=== PATIENT | male | born 1970 | race Caucasian/White ===

== ENCOUNTER 2019-05-23 12:26 | Observation (INO) | payer MEDICARE, OTHER ==
[2019-05-23] MEDS ORDERED: SODIUM CHLORIDE 0.9% 500 ML 500 ML IV STA (13:14)
[2019-05-23] MEDS ORDERED: METOCLOPRAMIDE 5 MG/ML 2 ML VIAL IVP STA (13:14)
[2019-05-23] MEDS ORDERED: HYDROmorphone 1 MG/ML 1 ML SYRINGE IVP STA (13:16)
--- NOTE | 2019-05-23 13:18 | ED ---
General Adult HPI - General Chief complaint: Headache Stated complaint: Headache Time Seen by Provider: 05/23/19 13:01 Source: patient, family, RN notes reviewed Mode of arrival: ambulatory Limitations: no limitations - History of Present Illness Initial comments: Patient is a pleasant 49-year-old male presenting to the emergency Department with headache. Patient states headaches have been present for the past several months. Headaches have been waxing and waning and do not normally completely go away. Headaches then gradually get worse. Headaches are very severe at times. Headache is more in the back of the head however does go to both sides. Patient does have associated nausea and photophobia. Patient states he was at [facility] approximately one month ago and was told there was question of some possible leaking. Patient got frustrated and left AGAINST MEDICAL ADVICE. Patient has been having continued symptoms since that time. No confusion or isolated area of weakness. No fevers. Patient does feel lightheaded at times. - Related Data Home Medications Medication Instructions Recorded Confirmed Ibuprofen [Motrin] 800 mg PO TID PRN 05/23/19 05/23/19 Allergies Allergy/AdvReac Type Severity Reaction Status Date / Time vancomycin Allergy Unknown Verified 05/23/19 13:31 Review of Systems ROS Statement: Those systems with pertinent positive or pertinent negative responses have been documented in the HPI. ROS Other: All systems not noted in ROS Statement are negative. Constitutional: Denies: fever Eyes: Denies: eye pain ENT: Denies: ear pain Respiratory: Denies: cough Cardiovascular: Denies: chest pain Endocrine: Denies: fatigue Gastrointestinal: Reports: nausea. Denies: abdominal pain Genitourinary: Denies: dysuria Musculoskeletal: Denies: back pain Skin: Denies: rash Neurological: Reports: headache. Denies: weakness, confusion Past Medical History Past Medical History: COPD, CVA/TIA, Hypertension Additional Past Medical History / Comment(s): spinal fluid leakage, blood clot to left arm History of Any Multi-Drug Resistant Organisms: None Reported Past Surgical History: Appendectomy Additional Past Surgical History / Comment(s): nerve repair Past Psychological History: No Psychological Hx Reported Smoking Status: Current every day smoker Past Alcohol Use History: None Reported Past Drug Use History: None Reported General Exam Limitations: no limitations General appearance: alert, in no apparent distress Head exam: Present: atraumatic, normocephalic Eye exam: Present: normal appearance, PERRL, EOMI. Absent: nystagmus ENT exam: Present: normal oropharynx Neck exam: Present: normal inspection Respiratory exam: Present: normal lung sounds bilaterally Cardiovascular Exam: Present: regular rate, normal rhythm GI/Abdominal exam: Present: soft. Absent: tenderness Extremities exam: Present: normal inspection Neurological exam: Present: alert, oriented X3, CN II-XII intact. Absent: motor sensory deficit Expanded Neurological exam: Present: protecting the airway Speech: Present: fluid speech Cranial nerves: EOM's Intact: Normal Motor strength exam: RUE: 5, LUE: 5, RLE: 5, LLE: 5 Eye Response: (4) open spontaneously Motor Response: (6) obeys commands Verbal Response: (5) oriented Psychiatric exam: Present: normal affect, normal mood Skin exam: Present: normal color Course Vital Signs 05/23/19 12:27 Temperature 98.1 F Pulse Rate 84 Respiratory 16 Rate Blood Pressure 177/99 O2 Sat by Pulse 98 Oximetry Medical Decision Making - Medical Decision Making Patient having continued symptoms. Case discussed with Dr. Murphy with neurology who does recommend observation and order for CTV tomorrow. Also request magnesium Toradol and Decadron. [facility] physician group has been paged for admission. Patient updated. Case was discussed with Dr. Parker, who will admit covering for hospital call. - Lab Data Result diagrams: 05/23/19 12:51 05/23/19 12:51 Lab Results 05/23/19 05/23/19 05/23/19 Range/Units 12:51 12:51 12:51 WBC 8.8 (3.8-10.6) k/uL RBC 4.34 (4.30-5.90) m/uL Hgb 14.3 (13.0-17.5) gm/dL Hct 41.2 (39.0-53.0) % MCV 95.0 (80.0-100.0) fL MCH 32.9 (25.0-35.0) pg MCHC 34.6 (31.0-37.0) g/dL RDW 13.3 (11.5-15.5) % Plt Count 174 (150-450) k/uL Neutrophils % 69 % Lymphocytes % 20 % Monocytes % 7 % Eosinophils % 1 % Basophils % 1 % Neutrophils # 6.0 (1.3-7.7) k/uL Lymphocytes # 1.8 (1.0-4.8) k/uL Monocytes # 0.6 (0-1.0) k/uL Eosinophils # 0.1 (0-0.7) k/uL Basophils # 0.1 (0-0.2) k/uL PT 9.8 (9.0-12.0) sec INR 0.9 (<1.2) APTT 25.0 (22.0-30.0) sec Sodium 138 (137-145) mmol/L Potassium 4.6 (3.5-5.1) mmol/L Chloride 106 (98-107) mmol/L Carbon Dioxide 23 (22-30) mmol/L Anion Gap 9 mmol/L BUN 14 (9-20) mg/dL Creatinine 0.97 (0.66-1.25) mg/dL Est GFR (CKD-EPI)AfAm >90 (>60 ml/min/1.73 sqM) Est GFR (CKD-EPI)NonAf >90 (>60 ml/min/1.73 sqM) Glucose 88 (74-99) mg/dL Calcium 9.2 (8.4-10.2) mg/dL Total Bilirubin 0.5 (0.2-1.3) mg/dL AST 30 (17-59) U/L ALT 19 L (21-72) U/L Alkaline Phosphatase 73 (38-126) U/L Total Protein 7.2 (6.3-8.2) g/dL Albumin 4.5 (3.5-5.0) g/dL - Radiology Data Radiology results: report reviewed (ET scan of the brain shows no acute process. 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
[2019-05-23 13:30] LABS: INR 0.9 (<1.2); Prothrombin Time 9.8 sec (9.0-12.0)
[2019-05-23 13:33] LABS: Basophils # (A) 0.1 k/uL (0-0.2); Basophils % (A) 1 %; Eosinophils # (A) 0.1 k/uL (0-0.7); Eosinophils % (A) 1 %; HCT 41.2 % (39.0-53.0); HGB 14.3 gm/dL (13.0-17.5); Lymphocytes # (A) 1.8 k/uL (1.0-4.8); Lymphocytes % (A) 20 %; MCH 32.9 pg (25.0-35.0); MCHC 34.6 g/dL (31.0-37.0); Mean Platelet Volume 7.5; Monocytes # (A) 0.6 k/uL (0-1.0); Monocytes % (A) 7 %; Neutrophils % (A) 69 %; Platelet Count 174 k/uL (150-450); RBC 4.34 m/uL (4.30-5.90); RDW 13.3 % (11.5-15.5); WBC 8.8 k/uL (3.8-10.6)
[2019-05-23 13:36] LABS: ALT 19 U/L (21-72); AST 30 U/L (17-59); African American GFR (CKD) >90 (>60 ml/min/1.73 sqM); Albumin 4.5 g/dL (3.5-5.0); Alkaline Phosphatase 73 U/L (38-126); Anion Gap 9 mmol/L; Blood Urea Nitrogen 14 mg/dL (9-20); Calcium 9.2 mg/dL (8.4-10.2); Carbon Dioxide 23 mmol/L (22-30); Chloride 106 mmol/L (98-107); Glucose 88 mg/dL (74-99); Potassium 4.6 mmol/L (3.5-5.1); Sodium 138 mmol/L (137-145); Total Bilirubin 0.5 mg/dL (0.2-1.3); Total Protein 7.2 g/dL (6.3-8.2)
--- NOTE | 2019-05-23 14:44 | CT ---
EXAMINATION TYPE: CT brain wo con DATE OF EXAM: 05/23/2019 COMPARISON: None HISTORY: 49-year-old male headache, Blurred vision, unsteady gait, head pressure TECHNIQUE: Examination was done in axial plane without intravenous contrast. Coronal and sagittal r econstructions performed. CT DLP: 1698.1 mGycm Automated exposure control for dose reduction was used. FINDINGS: There is no evidence of acute intracranial hemorrhage, acute ischemic changes, mass, mass-effect, or extra-axial fluid collection. There is no effacement of cerebral sulci or basal subarachnoid cister ns. There is no hydrocephalus. There is no midline shift. Ortega-white matter distinction is preserv ed. Slight leftward nasal septal deviation. Paranasal sinuses and mastoid air cells well pneumatized. Orb its and globes are intact. IMPRESSION: No acute intracranial abnormality seen.
--- NOTE | 2019-05-23 14:51 | CT ---
EXAMINATION TYPE: CT angio head neck DATE OF EXAM: 05/23/2019 COMPARISON: CT brain same day HISTORY: 49-year-old male with headache, Blurred vision, unsteady gait and headache TECHNIQUE: Contiguous axial scanning of the head and neck performed with IV Contrast, patient injecte d with 65 ml mL of Isovue 370. Coronal/sagittal MIP reconstructions performed. 3-D reconstructions ge nerated on a dedicated independent workstation. CT DLP: 1698.1 mGycm Automated exposure control for dose reduction was used. FINDINGS: Neck: Numerous punctate calcifications within the visualized bilateral lungs can be correlated clinically. This can be seen with metastatic calcifications in the setting of chronic kidney disease or prior hea led varicella or fungal infections. Conventional arch vessel branching anatomy. Brachiocephalic, right common carotid, and right internal carotid arteries are widely patent. Left common and internal carotid arteries are patent. Mild atelectatic calcifications at the origin of the left vertebral artery. Left vertebral artery is slightly more dominant. Both vessels are otherwise patent throughout their course. Head: Suspect a hypoplastic V4 segment right vertebral artery after the posterior inferior cerebellar arter y takeoff. The vertebral and basilar arteries are otherwise patent. Internal carotid arteries and remainder of the anterior circulation also remain patent without signif icant stenosis or occlusion. No aneurysmal change is identified. IMPRESSION: 1. NECK: NO HEMODYNAMICALLY SIGNIFICANT CAROTID OR VERTEBRAL ARTERY STENOSIS OR THE NECK. NUMEROUS PU NCTATE CALCIFICATIONS WITHIN THE VISUALIZED UPPER LUNGS COULD REFLECT SEQUELA OF CHRONIC KIDNEY DISEA SE OR PREVIOUS HEALED VARICELLA OR FUNGAL INFECTION. 2. 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 OTHER PEOPLES, NO SIGNIFICANT STENOSIS, LARGE VESSEL INTRACRANIAL ARTERIAL OCCLUSION, OR ANEURYSMAL CHANGE SEE N.
[2019-05-23] MEDS ORDERED: MAGNESIUM SULFATE-D5W PMX 1 GM in DEXTROSE/WATER 1 100ML.BAG IVPB ONE (15:22)
[2019-05-23] MEDS ORDERED: KETOROLAC 30 MG/ML 1 ML VIAL IVP STA (15:22)
[2019-05-23] MEDS ORDERED: DEXAMETHASONE SOD PHOSPHATE 10 MG/ML 1 ML VIAL IV STA (15:22)
[2019-05-23] MEDS ORDERED: NALOXONE 0.4 MG/ML 1 ML VIAL IV PRN (15:23)
[2019-05-23] MEDS ORDERED: RX INFO: IV CONTRAST WAS GIVEN 1 EACH MISC MISCELLANE PRN (15:24)
[2019-05-23] MEDS: MORPHINE SULFATE 4 MG/ML SYRINGE IV PRN ×2 (16:36→21:45)
[2019-05-23] MEDS: SODIUM CHLORIDE 0.9% 1,000 ML IV SCH (16:42)
[2019-05-23 17:56] VITALS: BMI 25.2
[2019-05-23] MEDS ORDERED: ACETAMINOPHEN TAB 325 MG TAB PO PRN (18:10)
--- NOTE | 2019-05-23 18:10 | P.HPIM ---
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 Patient reports headache that has been ongoing for the past 6 months. Patient states the headache is occipital and radiates to the frontal area left greater than right. Headache lasts for a couple of hours at a time. Headache occurs about 3 times a day. Headache is throbbing in nature and described as pressure-like. Pain is 7-10 out of 10 in severity. Headache is associated with blurry vision and unstable gait. Patient denies any increased stressors. He does drink 2 cups of coffee daily. Patient reports smoking 2-1/2-3 packs of cigarettes daily over the past 12 years. Patient has been evaluated in the past and diagnosed with "spinal fluid leakage"from [facility] but is unable to comment further. He denies any lower extremity edema, nausea or vomiting, fever or chills, cough, chest pain, shortness of breath, palpitations, changes in urination or bowel habits. No changes in appetite or weight. Patient reports chronic weakness in his right upper extremity along with numbness in all 4 of his extremities associated with his spinal injury. CT brain was performed which showed no acute intracranial abnormality. 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 Patient is admitted for intractable headache with neurology on consult. Review of Systems Pertinent positives and negatives as discussed in HPI, a complete review of systems was performed and all other systems are negative. Past Medical History Past Medical History: COPD, CVA/TIA, Hypertension Additional Past Medical History / Comment(s): spinal fluid leakage, blood clot to left arm from mercury poisoning, mercury poisoning : client stated he was exposed about 10 years ago at his fathers house and is now on lifelong treatment but has had meds for it in a year due to [place] to different [place]. History of Any Multi-Drug Resistant Organisms: None Reported Past Surgical History: Appendectomy, Back Surgery Additional Past Surgical History / Comment(s): nerve repair, client broke his lower back playing hockey 8 years ago. fractured right hand. Past Psychological History: No Psychological Hx Reported Smoking Status: Never smoker Past Alcohol Use History: None Reported Past Drug Use History: None Reported - Past Family History Brother(s) Family Medical History: Hypertension, Myocardial Infarction (ME) Additional Family Medical History / Comment(s): at age 49 from an ME Mother Family Medical History: Cancer Additional Family Medical History / Comment(s): Father Family Medical History: Cancer Additional Family Medical History / Comment(s): Medications and Allergies Home Medications Medication Instructions Recorded Confirmed Type Ibuprofen [Motrin] 800 mg PO TID PRN 05/23/19 05/23/19 History Allergies Allergy/AdvReac Type Severity Reaction Status Date / Time vancomycin Allergy Unknown Verified 05/23/19 13:31 Physical Exam Vitals: Vital Signs Temp Pulse Resp BP Pulse Ox 05/23/19 16:57 75 18 147/90 98 05/23/19 12:27 98.1 F 84 16 177/99 98 Intake and Output 05/23/19 05/23/19 05/23/19 06:59 14:59 22:59 Other: Weight 75.296 kg General: [non toxic], [no distress], [appears at stated age] Derm: [warm], [dry] Head: [atraumatic], [normocephalic], [symmetric], [restricted range of motion of the neck due to pain in the right upper extremity] Eyes: [EOMI], [no lid lag], [anicteric sclera] Mouth: [no lip lesion], [mucus membranes moist] Cardiovascular: [S1S2 reg], [no murmur], [positive DP pulse bilateral], Lungs: [CTA bilateral], [no rhonchi, no rales] , [no accessory muscle use] Abdominal: [soft], [ nontender to palpation], [no guarding], [no appreciable organomegaly] Ext: [no gross muscle atrophy], [no edema], [no contractures] Neuro: [ CN II-XI grossly intact], [4-5 strength in the right upper extremity, 5 out of 5 strength throughout, decreased sensation in all 4 extremities to touch] Psych: [Alert], [oriented], [appropriate affect] Results CBC & Chem 7: 05/23/19 12:51 05/23/19 12:51 Labs: Abnormal Lab Results - Last 24 Hours (Table) 05/23/19 Range/Units 12:51 ALT 19 L (21-72) U/L Thrombosis Risk Factor Assmnt - Choose All That Apply Each Factor Represents 1 point: Age 41-60 years Thrombosis Risk Factor Assessment Total Risk Factor Score: 1 Thrombosis Risk Factor Assessment Level: Low Risk Assessment and Plan Assessment: Assessment and plan Intractable headache with blurry vision, possibly related to chronic mercury poisoning or neck spasms from spinal injury in the past Smoker CT brain negative. 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 Neurology consulted from ED, recommends venogram. Plans: Pain management with morphine as needed for severe pain. Valium as needed for muscle spasms. We will restart the patient on his gabapentin as previously prescribed. Advanced neurochecks. Follow neurology recommendations. Plans: Add nicotine patch. DVT prophylaxis: [SCD boots] Discussed with: [Patient] Anticipated discharge: [1-2 days] Anticipated discharge place: [Home] A total of [35] minutes was spent on the care of this complex patient more than 50% of the time was spent in counseling and care coordination. Patient remains full code at this time.
[2019-05-23] MEDS: GABAPENTIN 300 MG CAP PO SCH ×2 (18:21→21:46)
[2019-05-23] MEDS: NICOTINE 21MG/24HR PATCH TRANSDERM SCH (18:21)
[2019-05-23] MEDS: CARVEDILOL 3.125 MG TAB PO SCH (18:56)
[2019-05-23] MEDS: amLODIPine 10 MG TAB PO SCH (18:56)
[2019-05-23] MEDS: ONDANSETRON 4 MG/2 ML VIAL IVP PRN (18:56)
[2019-05-23] MEDS: DIAZEPAM 5 MG TAB PO PRN (21:54)
[2019-05-24] MEDS: ONDANSETRON 4 MG/2 ML VIAL IVP PRN ×2 (04:49→20:14)
[2019-05-24] MEDS: MORPHINE SULFATE 4 MG/ML SYRINGE IV PRN ×3 (04:50→20:04)
[2019-05-24] MEDS: CARVEDILOL 3.125 MG TAB PO SCH ×2 (04:56→17:19)
[2019-05-24] MEDS: SODIUM CHLORIDE 0.9% 1,000 ML IV SCH ×2 (04:57→17:20)
[2019-05-24] MEDS: amLODIPine 10 MG TAB PO SCH (07:29)
[2019-05-24] MEDS: GABAPENTIN 300 MG CAP PO SCH ×3 (07:29→22:31)
[2019-05-24] MEDS: NICOTINE 21MG/24HR PATCH TRANSDERM SCH (07:29)
[2019-05-24 09:24] LABS: African American GFR (CKD) >90 (>60 ml/min/1.73 sqM); Anion Gap 8 mmol/L; Blood Urea Nitrogen 17 mg/dL (9-20); Calcium 9.1 mg/dL (8.4-10.2); Carbon Dioxide 24 mmol/L (22-30); Chloride 104 mmol/L (98-107); Glucose 98 mg/dL (74-99); Potassium 4.4 mmol/L (3.5-5.1); Sodium 136 mmol/L (137-145)
--- NOTE | 2019-05-24 12:21 | P.CNNES ---
History of Present Illness Consult date: 05/24/19 Reason for Consult: Severe headache Chief complaint: Severe headache x several months History of Present Illness: HISTORY OF PRESENT ILLNESS: Thank you for allowing me to evaluate Mr. Drew Jenkins. Mr. Jenkins is a 49-year-old man with past medical history of COPD, stroke/TIA, hypertension, who presented to [facility] with persistent severe headache for months, which evolved to also cause R-sided numbness and cramping. Patient states 8-9 months ago, he started having more occipital and L-sided headache associated with photophobia, phonophia and nausea that would last for sometimes 30 minutes, sometimes a few hours and would be relieved by ibuprofen. It started getting worse to the point where he has a headache persistently, anywhere from 3 to 7 out of 10 pain. Patient had been to other emergency rooms for these headaches, and at one point, was told that he may have some spinal flu id leakage, which could be causing his headaches. Currently, patient having 7 out of 10 pain. Patient states that he "broke his back" almost 10 years ago, which caused some back pain. Patient had received epidural injections and also got his CSF checked because some doctors were concerned about MS. Patient was never given a diagnosis or any medical treatment. Patient says that he may have gotten an MRI at [place], but her ED physician, patient had a CT Head done. Patient also states that he got his eyes checked at [facility] in [place] due to his progressive vision changes. States he had central vision loss with his R eye but perfect peripheral vision and some blurry vision in his L eye as if he was trying see under water. Patient states his pupils were dilated, and the eye doctor at the time said it should improve with time. No imaging was offered at the time. PAST MEDICAL HISTORY: COPD, stroke/TIA, hypertension PAST SURGICAL HISTORY: Appendectomy HOME MEDICATIONS: Ibuprofen when necessary ALLERGIES: Vancomycin SOCIAL HISTORY: Current every day smoker FAMILY HISTORY: No history of migraines. REVIEW OF SYSTEMS: The 14 systems are reviewed and no additional points are identified compared to the review of systems documented history and physical PHYSICAL EXAMINATION: VITAL SIGNS: T 97.3 HR 91 RR 18 BP 163/101 O2 sat 98% on RA GEN.: NAD, pleasant and cooperative HEENT: NCAT, sclera without icterus NECK: Supple SKIN AND EXTREMITIES: Warm to touch, no edema NEURO: MENTAL STATUS: Patient alert and oriented to self, place, time. Able to name the current president. Speech fluent, able to name and repeat, following all commands readily. No right and left disorientation, extinction to double simultaneous stimulation, finger agnosia, neglect.] CRANIAL NERVES II THROUGH XII: II: Pupils are equal and reactive to light symmetrically. No afferent pupillary defect. Visual boggs are intact. III, IV, : No ptosis. Extraocular movements full. No nystagmus. V: Facial sensation intact from V1-3. VII. No clear facial asymmetry. VIII: Hearing intact to finger rub bilaterally. IX, X: Symmetric palate elevation. XI: Shoulder shrug intact. XII: Tongue midline without fasciculation or atrophy.] MOTOR: Normal bulk/tone. No pronator drift or tremor. Strength is 5/5 throughout all 4 extremities. SENSORY: Decreased RUE/RLE sensation to light touch along with numbness and tingling. Romberg negative. REFLEXES: 2+ throughout. Toes are downgoing. No clonus. Cheyenne's is absent COORDINATION: Finger to nose intact. No dysmetria. GAIT: Narrow-based and stable. Able to toe/heel/tandem walk DIAGNOSTIC TESTING: LABORATORY: WBC 8.8 hemoglobin 14.3 platelet 174 PT 9.8 INR 0.9 sodium 136 potassium 4.4 chloride 104 bicarb 24 BUN 17 creatinine 1.08 glucose 98 AST 30 ALT 19 alk phos 73 IMAGING: CT head without contrast 05/23/2019: No acute intracranial abnormalities seen. 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 The vertebral and basilar arteries are otherwise patent. No hemodynamically significant carotid or vertebral artery stenosis or the neck. Numerous punctate calcifications within the visualized upper longs, could reflect sequela of chronic kidney disease or previous healed very sella or fun gal infection. ASSESSMENT: 49-year-old man with past medical history of COPD, stroke/TIA, hypertension, who presented to [facility] with persistent severe headache for months, which evolved to also cause R-sided numbness and cramping. Patient with persistent headache along with RUE/RLE numbness and cramping, no weakness. Patient has never had issues headaches/migraines until just 8 months ago. Patient also having R-sided symptoms. RECOMMENDATIONS: 1. MRI brain w/o contrast; MRI c-spine w/o contrast 2. Will start Depakote ER 500mg qday, MgOx 400mg BID, nortriptyline 25mg qhs 3. Will obtain EKG 4. Neurology will continue to follow. Past Medical History Past Medical History: COPD, CVA/TIA, Hypertension Additional Past Medical History / Comment(s): spinal fluid leakage, blood clot to left arm from mercury poisoning, mercury poisoning : client stated he was exp osed about 10 years ago at his fathers house and is now on lifelong treatment but has had meds for it in a year due to traveling to different [place]. History of Any Multi-Drug Resistant Organisms: None Reported Past Surgical History: Appendectomy, Back Surgery Additional Past Surgical History / Comment(s): nerve repair, client broke his lower back playing hockey 8 years ago. fractured right hand. Past Psychological History: No Psychological Hx Reported Smoking Status: Never smoker Past Alcohol Use History: None Reported Past Drug Use History: None Reported - Past Family History Brother(s) Family Medical History: Hypertension, Myocardial Infarction (NH) Additional Family Medical History / Comment(s): at age 49 from an NH Mother Family Medical History: Cancer Additional Family Medical History / Comment(s): Father Family Medical History: Cancer Additional Family Medical History / Comment(s): Medications and Allergies Home Medications Medication Instructions Recorded Confirmed Type Ibuprofen [Motrin] 800 mg PO TID PRN 05/23/19 05/23/19 History Allergies Allergy/AdvReac Type Severity Reaction Status Date / Time vancomycin Allergy Unknown Verified 05/23/19 13:31 Physical Examination - Vital Signs Vital Signs: Vital Signs Temp Pulse Pulse Resp BP BP Pulse Ox 05/24/19 04:48 97.3 F L 91 18 163/101 98 05/23/19 20:30 98.0 F 76 18 169/100 97 05/23/19 18:09 16 05/23/19 17:45 97.9 F 72 16 175/102 96 05/23/19 16:57 75 18 147/90 98 05/23/19 12:27 98.1 F 84 16 177/99 98 Intake and Output 05/23/19 05/24/19 05/24/19 22:59 06:59 14:59 Other: Voiding Method Toilet # Voids 1 2 Results - Laboratory Findings CBC and BMP: 05/23/19 12:51 05/24/19 08:07 Abnormal Lab Findings: Abnormal Labs 05/23/19 05/24/19 12:51 08:07 Sodium 136 L ALT 19 L
--- NOTE | 2019-05-24 13:32 | P.PN ---
Subjective Progress Note Date: 05/24/19 Mr. Jenkins is a 49-year-old male who was admitted with complains of headache going on for a few months now getting more frequent. Patient also reports that he has right-sided upper and lower extremity numbness and cramps without weakness also going on for a few months. Patient has a history of COPD, stroke/TIA, hypertension but was not taking any medication other than ibuprofen for his headaches. Patient smokes cigarettes and drink 2 cups of coffee daily along with caffeinated soft drinks. Patient has CT head without contrast was negative for acute process. 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 The vertebral and basilar arteries are otherwise patent. No significant stenosis in the carotid/vertebral arteries were reported. Patient was admitted for further evaluation and management. Patient was started on amlodipine 10 mg daily and carvedilol 3.25 mg twice daily for the control of blood pressure. In the past 12 are patient blood pressure is not significantly improved although it will continue to be like that for 48 h ours for permissive hypertension in case of TIA/stroke is the cause of his presenting symptoms. Neurology was consulted and patient was seen by Dr. Murphy and his recommendations appreciated. Patient will have MRI of the brain and C- spine without contrast and he will be started on Depakote magnesium oxide and nortriptyline. EKG will also be done as per his request. Patient reports that his vision is blurred for 8 months and he has seen the back hoe machine operator and he was prescribed glaucoma medications but he stated that his vision is not getting better. It was recommended for him to follow up with back hoe machine operator and get his prescription glasses for corrective vision. Patient denies double vision or visual field loss. Patient also complained of having epigastric mild pain without nausea vomiting or food intolerance. Patient denies chest pain, palpitation, dizziness, lightheadedness, fever, chills and denies rest of the review system. Objective - Vital Signs Vital signs: Vital Signs Temp 98.9 F 05/24/19 12:36 Pulse 85 05/24/19 12:36 Resp 14 05/24/19 12:36 BP 174/102 05/24/19 12:36 Pulse Ox 98 05/24/19 12:36 Intake & Output 05/23/19 05/24/19 05/24/19 18:59 06:59 18:59 Weight 75.296 kg Other: Voiding Method Toilet Toilet # Voids 2 - Constitutional General appearance: Present: cooperative, no acute distress - EENT Eyes: Present: EOMI, normal appearance ENT: Present: hearing grossly normal, NA/AT - Neck Neck: Present: normal ROM. Absent: lymphadenopathy, rigidity, stridor, thyromegaly - Respiratory Respiratory: bilateral: CTA, negative: rales, rhonchi, wheezing - Cardiovascular Rhythm: regular Heart sounds: normal: S1, S2 Abnormal Heart Sounds: Absent: systolic murmur, diastolic murmur, S3 Gallop, S4 Gallop - Gastrointestinal General gastrointestinal: Present: normal bowel sounds, soft. Absent: distended, rigid, tenderness - Integumentary Integumentary: Present: normal, normal turgor - Neurologic Neurologic: Present: CNII-XII intact. Absent: focal deficits - Psychiatric Psychiatric: Present: A&O x's 3, appropriate affect, intact judgment & insight - Allied health notes Allied health notes reviewed: nursing - Labs CBC & Chem 7: 05/23/19 12:51 05/24/19 08:07 Labs: Abnormal Lab Results - Last 24 Hours (Table) 05/23/19 05/24/19 Range/Units 12:51 08:07 Sodium 136 L (137-145) mmol/L ALT 19 L (21-72) U/L - Imaging and Cardiology CT Scan - head: report reviewed (No acute intracranial process reported.) Assessment and Plan (1) Hypertensive urgency Current Visit: Yes Status: Acute Priority: High Code(s): I16.0 - HYPERTENSIVE URGENCY SNOMED Code(s): 193746297 (2) TIA (transient ischemic attack) Current Visit: Yes Status: Acute Priority: High Code(s): G45.9 - TRANSIENT CEREBRAL ISCHEMIC ATTACK, UNSPECIFIED SNOMED Code(s): 828972256 (3) GERD (gastroesophageal reflux disease) Current Visit: Yes Status: Acute Priority: Medium Code(s): K21.9 - GASTRO- ESOPHAGEAL REFLUX DISEASE WITHOUT ESOPHAGITIS SNOMED Code(s): 388872431 (4) Insomnia Current Visit: Yes Status: Acute Priority: Medium Code(s): G47.00 - INSOMNIA, UNSPECIFIED SNOMED Code(s): 111134629 (5) Blurring of vision Current Visit: Yes Status: Chronic Priority: Medium Code(s): H53.8 - OTHER VISUAL DISTURBANCES SNOMED Code(s): 064205735 (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 Murphy for CEDENO's. Patient will be started on oral proton pump inhibitor to control his epigastric tenderness from gastritis/GERD. Headaches will be continued with when necessary pain medication patient was counseled regarding decreasing the amount of caffei ne in his diet from all sources and quitting smoking. It was well taken by the patient. Patient already made a plan that he is going to wean himself off caffeinated products and changed to decaffeinated ones and he will discuss with his primary provider regarding quitting smoking. Patient was also counseled not to take [id number] nonsteroidal anti-inflammatory drugs they may contributes towards his uncontrolled hypertension. Patient was educated about controlling the blood pressure with diet and medications. Patient will be kept in the hospital for another 24 hours while neurology workup is being done. Depending upon the outcome and neurology recommendation further disposition will be addressed in the morning. I will continue other medications as it is. Patient will be started on Depakote magnesium oxide as recommended by Dr. Murphy. Total time spent was more than 30 minutes and more than 50% was spent in counseling. Time with Patient: Greater than 30
[2019-05-24] MEDS ORDERED: hydrALAZINE HCL 20 MG/ML 1 ML VIAL IVP PRN (14:18)
[2019-05-24] MEDS: DIVALPROEX ER 500 MG TAB.ER.24H PO SCH (14:32)
[2019-05-24] MEDS: MAGNESIUM OXIDE 400 MG TAB PO SCH ×2 (14:32→20:03)
[2019-05-24 19:04] VITALS: RESP 16
[2019-05-24] MEDS: DIAZEPAM 5 MG TAB PO PRN (20:03)
[2019-05-24] MEDS ORDERED: NORTRIPTYLINE 25 MG CAP PO SCH (21:00)
[2019-05-24] MEDS ORDERED: MELATONIN 3 MG TABLET PO SCH (21:00)
[2019-05-25] MEDS: MORPHINE SULFATE 4 MG/ML SYRINGE IV PRN ×2 (03:07→13:22)
[2019-05-25] MEDS: ONDANSETRON 4 MG/2 ML VIAL IVP PRN (03:07)
[2019-05-25 04:54] VITALS: BP 149/94; PULSE 69; TEMP 97.7
[2019-05-25] MEDS ORDERED: PANTOPRAZOLE 40 MG TABLET PO SCH (07:30)
[2019-05-25] MEDS: DIVALPROEX ER 500 MG TAB.ER.24H PO SCH (08:06)
[2019-05-25] MEDS: MAGNESIUM OXIDE 400 MG TAB PO SCH (08:08)
[2019-05-25] MEDS: amLODIPine 10 MG TAB PO SCH (08:08)
[2019-05-25] MEDS: GABAPENTIN 300 MG CAP PO SCH (08:08)
[2019-05-25] MEDS: NICOTINE 21MG/24HR PATCH TRANSDERM SCH (08:08)
[2019-05-25] MEDS: CARVEDILOL 3.125 MG TAB PO SCH (08:08)
[2019-05-25] MEDS: SODIUM CHLORIDE 0.9% 1,000 ML IV SCH (08:09)
--- NOTE | 2019-05-25 12:06 | MR ---
MRI CERVICAL SPINE: CLINICAL HISTORY: Severe headache TECHNIQUE: Multiplanar, multisequence imaging of the brain and cervical spine is performed without IV contrast. COMPARISON: CT brain and CT angiogram of the head and neck 05/23/2019 FINDINGS: Brain MRI: Scattered sub and juxtacortical hyperintensities are present on inversion recovery and T2- weighted sequences within the supratentorial white matter. Approximately 50 lesions are present. Larg est lesion on axial image #19 in the left frontal white matter measures 8 mm. There is no hemorrhage or hydrocephalus. There are normal vascular flow voids. Orbits show symmetric appearance. 2. Callosum, pituitary, cervical medullary junction, cerebellopontine angles are normal. Sinuses are well aerated. Mastoid air cells are unremarkable. Or graph impression: Nonspecific white matter demye lination, correlate for possible multiple sclerosis, vasculitis or chronic small vessel ischemic conrad ge, Lyme disease, hypertension, migraine headaches. Cervical spine MRI: Sagittal images of the cervical spine show the craniocervical junction to appear within normal limits . The cervical and upper thoracic spinal cord is normal in course, caliber, and signal. Vertebral a lignment is anatomic. Some loss of disc height signal present at intervertebral levels compatible disc desiccation and dege nerative disc disease, there is multilevel spondylosis with minimal endplate discogenic marrow signal change. C2-3: Minimal right paracentral disc bulge causes slight anterior mass effect on the thecal sac, ther e is some mild foraminal encroachment due to uncovertebral joint hypertrophy. C3-4: Uncovertebral joint hypertrophy results in foraminal encroachment bilaterally. Minimal posterio r disc bulge causes only slight anterior mass effect on the thecal sac. No significant central stenos is. C4-5: Bilateral foraminal encroachment is again noted due to uncovertebral joint hypertrophy, posteri or broad-based disc bulge causes minimal anterior mass effect on the thecal sac. No significant centr al stenosis. C5-6: There is some foraminal encroachment bilaterally. No significant central stenosis. Posterior br oad-based disc bulge causes minimal anterior mass effect on the thecal sac. C6-7: There is bilateral foraminal encroachment. Minimal posterior disc bulge causes only slight ante rior mass effect on the thecal sac. C7-T1: There is a posterior broad-based disc bulge causing anteri or mass effect on the thecal sac. Only minimal central stenosis. There is bilateral foraminal encroac hment due to uncovertebral joint hypertrophy. IMPRESSION: Degenerative disc disease, multilevel foraminal encroachment.
--- NOTE | 2019-05-25 15:40 | P.DS ---
Providers Date of admission: 05/23/19 15:23 Expected date of discharge: 05/25/19 Attending physician: Ludy Huerta MD Consults: 05/23/19 15:23 Consult Physician Urgent Consulting Provider: Eloina Murphy Consult Reason/Comments: cephalgia Do you want consulting provider notified?: Already Contacted Primary care physician: Stated None - Discharge Diagnosis(es) (1) Hypertensive urgency Current Visit: Yes Status: Acute Priority: High (2) TIA (transient ischemic attack) Current Visit: Yes Status: Acute Priority: High (3) GERD (gastroesophageal reflux disease) Current Visit: Yes Status: Acute Priority: Medium (4) Insomnia Current Visit: Yes Status: Acute Priority: Medium (5) Blurring of vision Current Visit: Yes Status: Chronic Priority: Medium (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 Jenkins is a 49-year-old male who was admitted with complains of headache going on for a few months now getting more frequent. Patient also reports that he has right-sided upper and lower extremity numbness and cramps without weakness also going on for a few months. Patient has a history of COPD, stroke/TIA, hypertension but was not taking any medication other than ibuprofen for his headaches. Patient smokes cigarettes and drink 2 cups of coffee daily along with caffeinated soft drinks. Patient has CT head without contrast was negative for acute process. 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 The vertebral and basilar arteries are otherwise patent. No significant stenosis in the carotid/vertebral arteries were reported. Patient was admitted for further evaluation and management. Pt's vitals were ok with better control of his BP and resolution of CEDENO's. Lungs-CTA&P. Heart-RRR, S1S2+. Abd-Soft, BS+. A/P: Patient was started on amlodipine 10 mg daily and carvedilol 3.25 mg twice daily for the control of blood pressure. Neurology was consulted and patient was seen by Dr. Murphy and her recommendations appreciated. Patient will have MRI of the brain and C-spine without contrast and he will be started on Depakote magnesium oxide and nortriptyline. Pt. was resumed on Neurontin for his neuropathy with significant hlep, will continue. Pt's was given diet counseling re: changing to de-caffenated products and was well taken by him. He will also follow low salt diet too. Patient reports that his vision is blurred for 8 months and he has seen the lead section supervisor and he was prescribed glaucoma medications but he stated that his vision is not getting better. It was recommended for him to follow up with lead section supervisor and get his prescription glasses for corrective vision. Patient denies double vision or visual field loss. Pt. will get his sister's Ophthalmolo gist and will follow up with them. Patient also complained of having epigastric mild pain without nausea vomiting or food intolerance, PPI helped. Today MRI of Head and C-Spine report was reviewed by and pt. was cleared for discharge with 2 weeks f/u on current management. Pt. was started on Gabapentin and his MAPS was reviewed with Dr. Niru Hills today (05-25-2019) and was found to be satisfactory. We will prescribe him Gabapentin as recs from Neurologist Dr. Murphy. Pt. is feeling better as he had used this medication in the past for his neuropathy with help. Assessment: As Above. Pertinent Studies: CT-Brain, CT-Angiogram and MRI of Brain and C-Spine. Patient Condition at Discharge: Good Plan - Discharge Summary Discharge Rx Participant: No New Discharge Prescriptions: New Carvedilol [Coreg] 3.125 mg PO BID-W/MEALS 30 Days #60 tab Divalproex ER [Depakote ER] 500 mg PO DAILY 30 Days #30 tab.er.24h Melatonin 3 mg PO HS PRN 30 Days #20 tablet PRN Reason: Insomnia amLODIPine [Norvasc] 10 mg PO DAILY 30 Days #30 tab Nortriptyline [Pamelor] 25 mg PO HS 30 Days #30 cap Pantoprazole [Protonix] 40 mg PO AC-BRKFST 30 Days #30 tablet. Gabapentin [Neurontin] 300 mg PO TID 30 Days #90 cap Discontinued Ibuprofen [Motrin] 800 mg PO TID PRN PRN Reason: Pain Discharge Medication List Carvedilol [Coreg] 3.125 mg PO BID-W/MEALS 30 Days #60 tab 05/25/19 [Rx] Divalproex ER [Depakote ER] 500 mg PO DAILY 30 Days #30 tab.er.24h 05/25/19 [Rx] Gabapentin [Neurontin] 300 mg PO TID 30 Days #90 cap 05/25/19 [Rx] Melatonin 3 mg PO HS PRN 30 Days #20 tablet 05/25/19 [Rx] Nortriptyline [Pamelor] 25 mg PO HS 30 Days #30 cap 05/25/19 [Rx] Pantoprazole [Protonix] 40 mg PO AC-BRKFST 30 Days #30 tablet. 05/25/19 [Rx] amLODIPine [Norvasc] 10 mg PO DAILY 30 Days #30 tab 05/25/19 [Rx] Follow up Appointment(s)/Referral(s): Eloina Murphy MD [STAFF PHYSICIAN] - 2 Weeks Suman Lester [STAFF PHYSICIAN] - 1 Week Patient Instructions/Handouts: Degenerative Disc Disease (DC) Activity/Diet/Wound Care/Special Instructions: LOW SALT DIET, avoid caffinated products Activity as tolerated. No smoking, cessation information provided. Discharge Disposition: HOME SELF-CARE
--- NOTE | 2019-05-25 22:48 | P.PN ---
Progress Note - Text Progress Note Date: 05/25/19 SUBJECTIVE/INTERVAL EVENTS: No acute overnight events. Patient's headache improved significantly overnight. Patient slept well last night. States he got sleeping pill. Patient's vision unchanged. PHYSICAL EXAMINATION: VITAL SIGNS: T 97.7 HR 69 RR 16 BP 149/94 O2 sat 99% on RA GEN.: NAD, pleasant and cooperative HEENT: NCAT, sclera without icterus NECK: Supple SKIN AND EXTREMITIES: Warm to touch, no edema NEURO: MENTAL STATUS: Patient alert and oriented to self, place, time. Able to name the current president. Speech fluent, able to name and repeat, following all commands readily. No right and left disorientation, extinction to double simultaneous stimulation, finger agnosia, neglect. CRANIAL NERVES II THROUGH XII: II: Pupils are equal and reactive to light symmetrically. No afferent pupillary defect. Visual boggs are intact. III, IV, : No ptosis. Extraocular movements full. No nystagmus. V: Facial sensation intact from V1-3. VII. No clear facial asymmetry. VIII: Hearing intact to finger rub bilaterally. IX, X: Symmetric palate elevation. XI: Shoulder shrug intact. XII: Tongue midline without fasciculation or atrophy. MOTOR: Normal bulk/tone. No pronator drift or tremor. Strength is 5/5 througho ut all 4 extremities. SENSORY: Decreased RUE/RLE sensation to light touch along with numbness and tingling. Romberg negative. REFLEXES: 2+ throughout. Toes are downgoing. No clonus. Cheyenne's is absent COORDINATION: Finger to nose intact. No dysmetria. GAIT: Narrow-based and stable. Able to toe/heel/tandem walk DIAGNOSTIC TESTING: LABORATORY: WBC 8.8 hemoglobin 14.3 platelet 174 PT 9.8 INR 0.9 sodium 136 potassium 4.4 chloride 104 bicarb 24 BUN 17 creatinine 1.08 glucose 98 AST 30 ALT 19 alk phos 73 IMAGING: MRI brain w/o contrast 05/25/19: Scattered sub and justacortical hyperintensities on T2 sequence. There is no hemorrhage or hydrocephalus. There are normal vascular flow voids. Orbits show symmetric appearance. Callosum, pituitary, cervico-medullary function, cerebellopontine angles are normal. Nonspecific white matter demyelinations, correlate with possible multiple sclerosis, vasculuitis, or chronic small vessel ischemic changes, Lyme disease, HTN, migraine headaches. CT head without contrast 05/23/2019: No acute intracranial abnormalities seen. 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 The vertebral and basilar arteries are otherwise patent. No hemodynamically significant carotid or vertebral artery stenosis or the neck. Numerous punctate calcifications within the visualized upper longs, could reflect sequela of chronic kidney disease or previous healed very sella or fungal infection. ASSESSMENT: 49-year-old man with past medical history of COPD, stroke/TIA, hypertension, who presented to [facility] with persistent severe headache for months, which evolved to also cause R-sided numbness and cramping. Patient with persistent headache along with RUE/RLE numbness and cramping, no weakness. Patient has never had issues headaches/migraines until just 8 months ago. Patient also having R-sided symptoms. MRI brain showing nonspecific white matter changes. Patient's headache improved significantly overnight. Patient was also able to sleep. In addition to the migraine meds, patient was also given melatonin and diazepam, which could have helped with his sleep. Patient eager to go home as his symptoms have improved. RECOMMENDATIONS: 1. Continue with Depakote ER 500mg qday, MgOx 400mg BID, nortriptyline 25mg qhs 2. Patient needs to follow up with an outpatient Neurologist within 1-2 weeks of discharge. 3. 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 Patient will make follow up appointment with his terminal make up operator.
== END 2019-05-25 16:00 | disposition home or self-care (01) ==
LOC: EC 12:26 → 4MS4W 15:23
PROVIDERS: ADMIT Family Medicine; ATTEND Family Medicine
DX: I16.0 Hypertensive urgency (principal); G45.9 Transient cerebral ischemic attack, unspecified; K21.9 Gastro-esophageal reflux disease without esophagitis; K29.70 Gastritis, unspecified, without bleeding; T56.1X1A Toxic effect of mercury and its compounds, accidental (unintentional), initial encounter; G47.00 Insomnia, unspecified; G62.9 Polyneuropathy, unspecified; M48.02 Spinal stenosis, cervical region; H54.7 Unspecified visual loss; H53.8 Other visual disturbances; J44.9 Chronic obstructive pulmonary disease, unspecified; H40.9 Unspecified glaucoma; Z79.1 Long term (current) use of non-steroidal anti-inflammatories (NSAID); Z88.1 Allergy status to other antibiotic agents; Z86.73 Personal history of transient ischemic attack (TIA), and cerebral infarction without residual deficits; I10 Essential (primary) hypertension; Z90.49 Acquired absence of other specified parts of digestive tract; F17.200 Nicotine dependence, unspecified, uncomplicated; Z87.828 Personal history of other (healed) physical injury and trauma; Z91.89 Other specified personal risk factors, not elsewhere classified; F17.210 Nicotine dependence, cigarettes, uncomplicated; Z82.49 Family history of ischemic heart disease and other diseases of the circulatory system; Z80.9 Family history of malignant neoplasm, unspecified
CPT/HCPCS: 96361 ×3; 96375 ×2; 96376 ×3; 96365; 99285; 36415; 93005; 80053; 80048; 85025; 85610; 85730; 83825; 70496; 70450; 70498; 70551; 72141; G0378 ×3; S4990 ×3; J2270 ×3; J1100; J2765; J2405 ×3; J1885; J1170; J3475; Q9967